=== PATIENT | female | born 1990 | race Caucasian/White ===

== ENCOUNTER 2018-07-22 19:37 | Emergency (ER) | payer SELFPAY ==
[2018-07-22 19:38] VITALS: BP 153/92; PULSE 130; RESP 20; TEMP 36.8; O2SAT 100; BMI 35.4
[2018-07-22 20:02] VITALS: BP 141/87; PULSE 96; RESP 16; O2SAT 100
--- NOTE | 2018-07-22 20:02 | EKG12_ITS ---
Test Reason : SVT Blood Pressure : / mmHG Vent. Rate : 117 BPM Atrial Rate : 117 BPM P-R Int : 136 ms QRS Dur : 076 ms QT Int : 310 ms P-R-T Axes : 054 041 018 degrees QTc Int : 432 ms Sinus tachycardia Otherwise normal ECG Confirmed by BRITANY MARSH ([id number]), script editor JOSE ANTONIO BEE ([id number]) on 07/26/2018 8:36:33 AM Referred By: JOHN Confirmed By:BRITANY MARSH
--- NOTE | 2018-07-22 20:07 | ED.RN ---
NO OLD EKGS IN MUSE
[2018-07-22 20:31] LABS: Absolute Lymphocyte Count 2.45 X10^3/ul (0.83-4.51); Basophil# 0.01 X10^3/uL; Basophil% 0.1 % (0-1); Hematocrit 44.6 % (37-47); Hemoglobin 14.7 g/dl (12.0-15.0); Lymphocyte # 2.45 X10^3/ul (4.0); Lymphocyte % 24.3 % (19-41); Mean Corpuscular Hgb 27.9 pg (27.0-32.0); Mean Corpuscular Volume 84.6 fL (81-99); Mean Platelet Vol. 9.6 fl (6.2-12.0); Monocyte# 0.49 X10^3/uL; Monocyte% 4.9 % (0-10); Neutrophil # 7.03 X10^3/uL (2.7-7.7); Neutrophil % 69.5 % (47-70); Platelet Count 287 K/mm3 (150-450); RBC Distribution Width CV 12.9 % (11.6-14.6); RBC Distribution Width SD 39.3 fl (35.1-43.9); Red Blood Count 5.27 M/mm3 (4.2-5.4); White Blood Count 10.1 K/mm3 (4.4-11.0)
[2018-07-22 20:34] LABS: POSITIVE COUNT NO; POSITIVE DIFFERENTIAL NO; POSITIVE MORPHOLOGY NO
[2018-07-22 20:52] LABS: Anion Gap 8 (5-15); BUN 10 mg/dL (7-18); BUN/Creat Ratio 13.4 RATIO (10-20); Calcium,Total 9.1 mg/dL (8.5-10.1); Chloride 108 mmol/L (98-107); Creatinine, Serum 0.75 mg/dL (0.55-1.02); EST Glomerular Filtration Rate 99 mL/min (>60); Est Glom Filt Rate - Afr Amer 120 mL/min (>60); Estimated Creatinine Clearance 102.28 ml/min; Glucose 124 mg/dL (74-106); Potassium 3.3 mmol/L (3.5-5.1); Sodium Level 141 mmol/L (136-145); Thyroid Stim Hormone (TSH) 2.39 uIU/mL (0.358-3.74)
[2018-07-22 21:23] VITALS: BP 135/88; PULSE 99; RESP 16; O2SAT 99
[2018-07-22 22:13] VITALS: BP 145/88; PULSE 111; RESP 16; O2SAT 97
--- NOTE | 2018-07-22 22:33 | ED.VISSUMM ---
- ER Visit Summary Date of Service: 07/22/18 Chief Complaint: Rapid heart rate History of Present Illness: The patient is a 27 F who presents with rapid heart rate. She is states her heart rate is gone as high as 130. This is been an intermittent problem for approximately 1 year. She is noted increased shortness of breath over the past several months. She also reports a 30 pound weight gain. She denies night sweats. She denies ocular, visual auditory symptoms. She denies any chest discomfort. She denies orthopnea or PND. She denies abdominal pain, nausea, vomiting diarrhea. She denies black or maroon stool. She denies urologic symptoms. She denies myalgias, arthralgias or back pain. She denies skin rash or lesions. She denies headache, weakness, anesthesia, paresthesia or motor weakness. She denies anxiety. She denies urticaria or angioedema. She does drink caffeinated beverages. She denies heat or cold intolerance. Please read written note for complete detail. Physical Examination: Vital signs noted and are marked for an elevated blood pressure 153/92 and heart rate 130. BMI is 35.4. Head is atraumatic normocephalic. Pupils are equal round reactive. Extraocular muscles are intact. TMs are pearly white with landmarks noted. Nares patent with no drainage. Posterior pharynx without erythema or exudate. Uvula is midline. There is no dysphonia or dysphasia. Trachea is midline. There is no stridor with auscultation of the neck. Heart is regular without murmur, gallop or rub. S1 and S2 are normal. Lungs are clear to auscultation with good movement of air bilaterally. Abdomen soft nontender. Patient is alert and oriented ?3. Motor is 5 over 5. Sensory is intact. DTRs are symmetric with no clonus or Babinski sign. Cranial 2 through 12 are intact. Cerebellar testing is normal. Test Results: CBC normal. Basic metabolic panel is unremarkable. Potassium 3.3 chloride 108 glucose 124. TSH normal. EKG sinus tachycardia rate of 117 with normal AK interval, QRS duration and QT interval. Dingess is normal. There is no evidence of WPW or Avilez Long Ganong syndrome. Emergency Department Course and Treatment: EKG was obtained to determine if there is any findings suggest preexcitation syndrome. Electrolytes TSH. Treatment Plan: Since this is been a problem for many months she was referred to Dr. Elizondo who is on-call for cardiology. Disposition: Discharge to home and decrease caffeine intake Impression: Sinus tachycardia documented on EKG This note was generated with [employer] dictation software. It may contain incorrect words, spelling, and punctuation that were not noted in review of the chart prior to signing ED Disposition - Plan for ED Patient: Disposition: Home or Assisted Living Chief Complaint: Palpitations Instructions: ED Tachycardia Pat PSVT Referrals: Yasmany Perez DO [Primary Care Provider] - Nahum Elizondo MD [STAFF PHYSICIAN] - 5-7 Days Additional Instructions: You should decrease your caffeine intake.
[2018-07-22 23:14] VITALS: BP 132/78; PULSE 102; RESP 16; O2SAT 96
== END 2018-07-22 23:14 | disposition home or self-care (01) ==
PROVIDERS: Emergency Provider Emergency Medicine; Family Provider Family Medicine; PCP Family Medicine
DX: R00.0 Tachycardia, unspecified (principal); E66.9 Obesity, unspecified; Z68.35 Body mass index [BMI] 35.0-35.9, adult; Z72.0 Tobacco use
CPT/HCPCS: 80048; 84443; 85025; 93005; 99284; A4216

== ENCOUNTER 2019-01-11 17:49 | Emergency (ER) | payer SELFPAY ==
[2019-01-11 17:51] VITALS: BP 136/76; PULSE 122; RESP 18; TEMP 36.4; O2SAT 98; BMI 34.5
== END 2019-01-11 19:15 | disposition left against medical advice (07) ==
LOC: ED 19:31
PROVIDERS: Emergency Provider Emergency Medicine; Family Provider Family Medicine; PCP Family Medicine
DX: R69 Illness, unspecified (principal); Z53.21 Procedure and treatment not carried out due to patient leaving prior to being seen by health care provider

== ENCOUNTER 2019-01-13 23:55 | Emergency (ER) | payer SELFPAY ==
[2019-01-13 23:57] VITALS: BP 152/79; PULSE 108; RESP 16; TEMP 36.8; O2SAT 99; BMI 34.3
--- OUTSIDE RECORDS SUMMARY | 2019-01-14 00:22 | XMS RPT_ITS | CCD ---
:1990 External Reference #:[id number] Author Organization [facility] Care Team Providers Name Role Phone Unavailable Unavailable Unavailable Results Result Name Value Range Unit Interpretation Flag Date Location ua on 2019-01-11 Color Nom (U) Nery Normal 01-11-2019 [facility] ([place]) ([id number]) Comment: Performed By: #### UA, UAMICAO #### [place] [address] #### PREGU #### [address] [address] Glucose mass conc Negative Negative mg/dL Normal 01-11-2019 [facility] () [facility] [place] ([id number]) Comment: Performed By: #### UA, UAMICAO #### [address] [address] #### PREGU #### [address] [address] Ketones Ql (U) 80 Negative mg/dL 01-11-2019 [facility] ([place] ([id number]) Comment: Performed By: #### UA, UAMICAO #### [place] [address] #### PREGU #### [address] [address] UA Appear Cloudy Clear 01-11-2019 [facility] [place] ([id number]) Comment: Performed By: #### UA, UAMICAO #### [place] [address] #### PREGU #### [address] [address] UA Blood Trace Negative 01-11-2019 [facility] [place] ([id number]) Comment: Performed By: #### UA, UAMICAO #### [place] [address] #### PREGU #### [address] [address] UA Leuk Est Negative Negative Normal 01-11-2019 [facility] [place] ([id number]) Comment: Performed By: #### UA, UAMICAO #### [place] [address] #### PREGU #### [address] [address] UA Nitrite Negative Negative Normal 01-11-2019 [facility] [place] ([id number]) Comment: Performed By: #### UA, UAMICAO #### [place] [address] #### PREGU #### [address] [address] UA pH 5.5 5.0 - 8.0 Normal 01-11-2019 [facility] [place] ([id number]) Comment: Performed By: #### UA, UAMICAO #### [place] [address] #### PREGU #### [address] [address] UA Protein 30 Negative mg/dL Normal 01-11-2019 [facility] [place] ([id number]) Comment: Performed By: #### UA, UAMICAO #### [place] [address] #### PREGU #### [address] [address] UA Spec Grav >=1.030 1.015-1.025 01-11-2019 [facility] ([place] ([id number]) Comment: Performed By: #### UA, UAMICAO #### [place] [address] #### PREGU #### [address] [address] UA Specimen Type Clean Catch Normal 01-11-2019 [facility] [place] ([id number]) Comment: Performed By: #### UA, UAMICAO #### [place] [address] #### PREGU #### [address] [address] UA Urobilinogen 0.2 0.2-1.0 E.U./dL Normal 01-11-2019 [facility] ([place] ([id number]) Comment: Performed By: #### UA, UAMICAO #### [place] [address] #### PREGU #### [address] [address] Urobilinogen Qn (U) Small Negative 01-11-2019 [facility] [place] ([id number]) Comment: Performed By: #### UA, UAMICAO #### [place] [address] #### PREGU #### [address] [address] pregu on 2019-01-11 HCG ( test) Ql (U) Negative Normal 01-11-2019 [facility] ([place] ([id number]) Comment: Performed By: #### UA, UAMICAO #### [place] [address] #### PREGU #### [address] [address] test (u) int HCG not detected. 01-11-2019 [facility] ([place]) ([id number]) Comment: Performed By: #### UA, UAMICAO #### [place] [address] #### PREGU #### [address] [address] .urinalysis microscopic (ao) on 2019-01-11 RBC #/vol (U) 0-5 None Seen 01-11-2019 [facility] ([place] ([id number]) Comment: Performed By: #### UA, UAMICAO #### [place] [address] #### PREGU #### [address] [address] UA Bacteria 1+ /hpf 01-11-2019 [facility] ([place] ([id number]) Comment: Performed By: #### UA, UAMICAO #### [place] [address] #### PREGU #### [address] [address] UA Squam Epithelial 5-10 None Seen 01-11-2019 [facility] [place] ([id number]) Comment: Performed By: #### UA, UAMICAO #### [place] [address] #### PREGU #### [address] [address] UA WBC None Seen None Seen Normal 01-11-2019 [facility] [place] ([id number]) Comment: Performed By: #### UA, UAMICAO #### [place] [address] #### PREGU #### [address] [address] [address] head or brain w/o contrast on 2018-12-19 CT HEAD OR BRAIN ORIGINAL Normal 12-19-2018 [facility] W/O CONTRAST CT HEAD OR BRAIN W/O CONTRAST [facility] [place] ([id number]) This exam was performed according to our departmental dose optimization program, and includes the following measures where applicable: automated exposure control, adjustment of the mAs and/or kVp accord ing to patient size and/or exam, and an iterative reconstruction algorithm. CLINICAL STATEMENT: Posterior head/neck pain COMPARISON: None FINDINGS: The ventricles are normal in size, shape, and position. Bloom and white matter differentiation is preserved. There is no acute intracranial hemorrhage, large territory infarct, mass effect, or midline shift. The visualized paranasal sinuses and mastoid air cells are clear. The calvarium is intact. IMPRESSION: No acute process. Interpreted By: Belen Henriquez MD Preliminary Report By: Belen Henriquez MD Electronically Signed By: Belen Henriquez MD Dictated Date: 12/19/2018 1:52:05 PM Prelim Date: 12/19/2018 1:52:05 PM Sign Date: 12/19/2018 1:53:19 PM Encounters Date Type Reason Provider Location 01-11-2019 - Emergency department Flaquita Yoo Facility:B 01-11-2019 patient visit LEONEL LOUISE Payers Payer Name Policy Number Location SELF PAY [employer] [facility] [place] ([id number]) [id number] [facility] [place] ([id number]) The following information is from the original human readable content ENCOUNTER GUARANTOR PAYER SUBSCRIBER SOURCE 2019 MARLENE Nina [facility] MARLENE M [facility] LITTLEDOB: Insurance:SELF PAY LITTLEDOB: [facility] [id number] INSCOPolicy Number: [id number] [facility] SERA [facility] SERA [place], [place] Date:[address] [place] [id number]: [phone] [email or web address]: Name:[phone] () ()Tel: [phone] () Summary Purpose DATE CREATED AUTHOR AUTHOR'S ORGANIZATION 01/12/2019 [facility] ([place] Family History No Family History Records Found Advance Directives No Advanced Directives Records Found Additional Source Comments FOR RECORDS PERTAINING TO PATIENTS WHO ARE OR HAVE BEEN ENROLLED IN A CHEMICAL DEPENDENCY/SUBSTANCE ABUSE PROGRAM, SOME INFORMATION MAY BE OMITTED. This clinical summary was aggregated from multiple sources. Caution should be exercised in using it in the provision of clinical care. This summary normalizes information from multiple sources, and as a consequence, information in this document may materially changethe coding, format and clinical context of patient data. In addition, data may be omittedin some cases. CLINICAL DECISIONS SHOULD BE BASED ON THE PRIMARY CLINICAL RECORDS. [facility] provides no warranty or guarantee of the accuracy or completeness of information in this document. UNRECOGNIZED CONTENT PROVIDED BELOW FOR UNRECOGNIZED SECTION INFORMATION SOURCE DATE CREATED AUTHOR AUTHOR'S ORGANIZATION 01/12/2019 [facility] ([place])
[2019-01-14 01:46] LABS: Absolute Lymphocyte Count 1.99 X10^3/ul (0.83-4.51); Basophil# 0.02 X10^3/uL; Basophil% 0.2 % (0-1); Eosinophil# 0.05 X10^3/uL; Eosinophils% 0.5 % (0-5); Hematocrit 42.8 % (37-47); Hemoglobin 14.5 g/dl (12.0-15.0); Lymphocyte # 1.99 X10^3/ul (4.0); Lymphocyte % 18.7 % (19-41); Mean Corp Hgb Conc 33.9 g/gl (32-36); Mean Corpuscular Hgb 27.6 pg (27.0-32.0); Mean Corpuscular Volume 81.4 fL (81-99); Mean Platelet Vol. 9.9 fl (6.2-12.0); Monocyte# 0.55 X10^3/uL; Monocyte% 5.2 % (0-10); Neutrophil % 75.3 % (47-70); Platelet Count 325 K/mm3 (150-450); RBC Distribution Width CV 12.5 % (11.6-14.6); Red Blood Count 5.26 M/mm3 (4.2-5.4); White Blood Count 10.6 K/mm3 (4.4-11.0)
[2019-01-14 01:47] LABS: POSITIVE COUNT NO; POSITIVE DIFFERENTIAL NO; POSITIVE MORPHOLOGY NO
[2019-01-14 02:10] LABS: Anion Gap 6 (5-15); BUN 12 mg/dL (7-18); BUN/Creat Ratio 18.9 RATIO (10-20); Calcium,Total 9.2 mg/dL (8.5-10.1); Chloride 105 mmol/L (98-107); Creatinine, Serum 0.64 mg/dL (0.55-1.02); EST Glomerular Filtration Rate 119 mL/min (>60); Est Glom Filt Rate - Afr Amer 144 mL/min (>60); Estimated Creatinine Clearance 123.61 ml/min; Glucose 109 mg/dL (74-106); Potassium 3.6 mmol/L (3.5-5.1); Sodium Level 138 mmol/L (136-145); Thyroid Stim Hormone (TSH) 1.13 uIU/mL (0.358-3.74)
--- NOTE | 2019-01-14 02:34 | ED.DCSUM_ITS ---
- ER Visit Summary Date of Service: 01/14/19 Chief Complaint: Shaky and twitchy History of Present Illness: The patient is a 28 F who complains about 2-3 weeks of muscle spasms and twitching shakiness. She does complain of depression. She states she has felt more irritable lately. She also complains of fatigue. She complains of nausea. She remains of pain in the back of her head and neck. Physical Examination: Heart rate 108 vitals otherwise unremarkable Moist mucous membranes Heart regular rate and rhythm Lungs are clear Abdomen soft Extremities nontender, normal muscle tone No focal or lateralizing neurological deficits Patient has a blunted affect Test Results: CBC BMP TSH all normal. Emergency Department Course and Treatment: Patient was requesting blood work and CAT scans. She states she is worried that something is wrong with her nervous system. I explained that many of her symptoms are attributable to depression. I did check blood work including CBC for anemia and TSH for hypothyroidism. La bs are unremarkable. Patient advised to follow-up with her primary care physician was discharged home. Treatment Plan: [] Disposition: Discharge Impression: Depression This note was generated with [employer] dictation software. It may contain incorrect words, spelling, and punctuation that were not noted in review of the chart prior to signing ED Disposition - Plan for ED Patient: Referrals: Yasmany Perez DO [Primary Care Provider] -
--- NOTE | 2019-01-14 02:34 | ED.DEP ---
ED Disposition - Plan for ED Patient: Instructions: ED Depression Referrals: Yasmany Perez DO [Primary Care Provider] -
[2019-01-14 02:41] VITALS: BP 136/75; PULSE 75; RESP 16; O2SAT 100
== END 2019-01-14 02:41 | disposition home or self-care (01) ==
PROVIDERS: Emergency Provider Emergency Medicine; Family Provider Family Medicine; PCP Family Medicine
DX: F32.9 Major depressive disorder, single episode, unspecified (principal); Z72.0 Tobacco use
CPT/HCPCS: 80048; 84443; 85025; 99283; A4216

== ENCOUNTER 2019-09-29 06:59 | Emergency (ER) | payer MEDICAID, SELFPAY ==
[2019-02-09 15:56] VITALS: BMI 34.3
[2019-09-29 07:00] VITALS: BP 133/71; PULSE 103; RESP 16; TEMP 36.8; O2SAT 97; BMI 34.9
--- NOTE | 2019-09-29 07:39 | ED.VIS.GI ---
History of Present Illness Chief Complaint: Complaint Detail of Chief Complaint: lower abdominal pain Informant: Patient - Abdominal Pain/Flank Pain Onset: Weeks - 2-3 Context: Gradual Onset Timing: Intermittent, Waxes and wanes Quality: - - pressure Location: - - suprapubic Current Severity: Mild Maximum Severity: Moderate Worsened by: - - TV ultrasound exam Relieved by: Nothing - Nausea/Vomiting/Emesis GI Symptom: Nausea, Vomiting - occasional Onset: Weeks - 2 - Diarrhea/Melena/Hematochezia GI Symptom: Negative for: Diarrhea, Melena, Hematochezia Associated Symptoms: Frequency. Negative for: Dysuria, Hematuria, Urgency Narrative: Patient states she is 12 weeks . She has had the symptoms for weeks. She saw her raking machine operator a couple times. She has had negative urinalysis and culture according to her, with the exception of microscopic hematuria, and an ultrasound showing a single live intrauterine , she is G1, P0. She had a vaginal discharge earlier than all of this and was told she had bacterial vaginosis but they did not want a treated at the time, however they did just start treating it and she has been on Flagyl for 5 days. She states the symptoms are no different with the exception of the vaginal discharge which is gone. In addition for the past week and a half or so, she has been having small hard bowel movements and feels she is backed up. No history of any abdominal surgeries. No fevers. No back pain. No vaginal bleeding. - Past Medical History (1) GERD (gastroesophageal reflux disease) Status: Chronic Past Medical History - Allergies and Home Meds Allergies/Adverse Reactions: Allergies No Known Allergies Allergy (Verified 09/29/19 07:02) Past Medical History: None Smoking Status: Current every day smoker Drugs: None Review of Systems General: Denies: Chills, Fever, Sweats Eyes: Denies: Visual changes - bilaterally, Diplopia ENT: Denies: Rhinorrhea, Sore throat Cardiovascular: Denies: Chest pain, Palpitations Respiratory: Denies: Dyspnea, Cough, Dyspnea on exertion Gastrointestinal: Reports: Abdominal pain - upper chronically w/ reflux, not now. suprapubic - see HPI., Nausea, Vomiting. Denies: Diarrhea, Melena, Hematochezia Genitourinary: Reports: Frequency. Denies: Dysuria, Hematuria Musculoskeletal: Denies: Neck pain, Back pain, Swelling, Extremity Pain Skin: Denies: Rash, Wounds Neurological: Denies: Headache, Weakness, Numbness Physical Exam Vital Signs/Narrative: Vital Signs Temp Pulse Resp BP Pulse Ox 09/29/19 07:00 98.3 F 103 H 16 133/71 H 97 Inital Vital Signs reviewed: Yes General: Well nourished, Well developed, Obese, No Acute Distress Head: Normocephalic, Atraumatic Eyes: Perrl, EOMI ENT: Moist mucous membranes, No rhinorrhea Neck: Supple, Nontender Cardiovascular: Regular rate, Regular rhythm, No murmurs. Negative for: Tachycardia Respiratory: No distress, CTA bilaterally, Chest nontender Abdomen: Soft, Nondistended, Normal bowel sounds, Tender - mild suprapubic only. Negative for: Guarding, Rebound tenderness Back: Nontender, Normal Inspection. Negative for: CVA tenderness Extremities: Nontender, No edema Skin: Normal color, No rash Neurological: Alert, Oriented x3, Cranial nerves II-XII grossly intact, Normal Strength, Normal Sensation Psychological: Normal affect, Normal Mood Diagnostic/Tx/Re-eval - Medical Decision Making heart tones 154. Offered testing the patient is urine but she states my CORE DRILL OPERATOR already did that, I do not need it again. We gave her a fleets enema which she agreed to, after which she had a large bowel movement and felt much better, her pain is much better. She should continue the Flagyl as prescribed until finished. She should follow-up with her CORE DRILL OPERATOR. She is comfortable with this plan in addition to adding MiraLAX to her daily routine. We did discuss antinausea medications and that they can cause constipation, she has not been using them yet but has them at the pharmacy. ED Disposition - Plan for ED Patient: Disposition: Home or Assisted Living Diagnosis: Suprapubic abdominal pain, First trimester , Constipation Instructions: ABDOMINAL PAIN, Early , CONSTIPATION (Adult) Referrals: Adalberto Mathis DO [Primary Care Provider] - CORE DRILL OPERATOR, your [Other] - 3-5 Days if not improving Additional Instructions: Take 1 capful of MiraLAX dissolved in any liquid daily and make sure you are drinking plenty of fluids, to prevent recurrence of constipation issues.
[2019-09-29] MEDS: Fleet Enema 1 ML RECTAL (08:30)
[2019-09-29 09:26] VITALS: RESP 18
== END 2019-09-29 09:26 | disposition home or self-care (01) ==
PROVIDERS: Emergency Provider Emergency Medicine; Family Provider Preventive Medicine Occupational Medicine; PCP Preventive Medicine Occupational Medicine
DX: O99.611 Diseases of the digestive system complicating pregnancy, first trimester (principal); K59.00 Constipation, unspecified; O99.211 Obesity complicating pregnancy, first trimester; E66.9 Obesity, unspecified; O99.331 Smoking (tobacco) complicating pregnancy, first trimester; F17.200 Nicotine dependence, unspecified, uncomplicated; Z3A.12 12 weeks gestation of pregnancy
CPT/HCPCS: 99282

== ENCOUNTER → 2020-12-06 | Outpatient (CLI) | payer MEDICAID, SELFPAY | END | disposition home or self-care (01) | PROVIDERS: PCP Preventive Medicine Occupational Medicine; Referring Provider Otolaryngology; Visit Provider Otolaryngology | DX: J02.9 Acute pharyngitis, unspecified (principal) | CPT/HCPCS: 87070 ==

== ENCOUNTER → 2021-04-02 07:38 | Outpatient (CLI) | payer MEDICAID, SELFPAY ==
--- NOTE | 2021-04-02 07:39 | CT_ITS ---
STUDY: CT SOFT TISSUE NECK WITH CONTRAST REASON FOR EXAM: Female, 30 years old. NECK MASS TONGUE PAIN. Swelling of the left salivary gland. RADIATION DOSAGE (If Supplied By Facility): CTDIvol = ( 18.82 ) mGy, DLP = ( 489.01 ) mGycm TECHNIQUE: The patient was scanned in a multi-detector CT scanner. High resolution transaxial imaging was performed following intravenous administration of IV 100mL Isovue-300. Sagittal and coronal images were reconstructed. Individualized dose optimization techniques were used for this CT. COMPARISON: None. FINDINGS: Mildly enlarged left parotid gland. This is a 4.2 mm x 4 mm cyst in the anterior superior aspect of the left parotid gland. No calcification is seen within the gland. Normal bilateral five roll refiner batch mixer spaces. Normal bilateral parapharyngeal spaces. Normal bilateral carotid spaces. Normal bilateral sublingual and submandibular glands and spaces. Normal visualized nasopharynx. Normal retropharyngeal space. Normal perivertebral space. Normal visualized bilateral faucial tonsils. The visualized tongue, tongue base and oropharynx are normal. The visualized cervical lymph nodes (levels I-) are within normal size limits, and maintain normal morphology. There is no demonstrated solid or cystic mass lesion. There is no abnormal contrast enhancement. Normal epiglottis, bilateral vallecula and hypopharynx. The pre-epiglottic and paraglottic adipose spaces are normal. Normal visualized bilateral piriform sinuses, aryepiglottic folds, vocal cords, and arytenoid-cricoid articulations. Normal subglottic trachea. Normal bilateral lobes of the thyroid gland. Normal visualized pulmonary apices. Normal visualized paranasal sinuses. Normal visualized cervical spine. CT/Soft Tissue Neck WITH Contrast IMPRESSION: Mild enlargement of the left parotid gland with a 4.2 mm x 4 mm cyst in the anterior superior aspect of the left parotid gland. Electronically Signed: Duane Lyles MD at 8:19 EDT , Service support ,
== END ==
PROVIDERS: PCP Student in an Organized Health Care Education/Training Program; Referring Provider Otolaryngology; Visit Provider Otolaryngology
DX: R22.1 Localized swelling, mass and lump, neck (principal); K14.6 Glossodynia
CPT/HCPCS: 70491; Q9967

== ENCOUNTER → 2023-01-15 | Outpatient (CLI) | payer MEDICAID, SELFPAY ==
[2023-01-18 15:07] LABS: SJOGREN'S Anti-SS-A test < 0.2 AI (0.0-0.9); SJOGREN'S Anti-SS-B test < 0.2 AI (0.0-0.9)
== END | disposition home or self-care (01) ==
LOC: LAB 08:28
PROVIDERS: PCP Student in an Organized Health Care Education/Training Program; Referring Provider Otolaryngology; Visit Provider Otolaryngology
DX: K11.23 Chronic sialoadenitis (principal)
CPT/HCPCS: 36415; 86235

== ENCOUNTER → 2023-06-11 | Outpatient (CLI) | payer MEDICAID, SELFPAY ==
--- NOTE | 2023-06-11 18:16 | US_ITS ---
Exam: Limited focused ultrasound of the left neck. HISTORY: Left submandibular gland swelling. COMPARISON: CT scan 04/02/2021 US/Head/Neck Soft Tissue IMPRESSION: Left submandibular gland measures 5.5 x 3.4 x 2.1 cm. Right-sided mandibular gland measures 5.3 x 3.3 x 1.2 cm. No gross focal mass. Nonspecific, nonpathologic left-sided lymph nodes. IMPRESSION: No definite mass. No definite difference in size between the submandibular glands. Electronically Signed: Kevin Brown MD at 18:57 EDT ,
== END | disposition home or self-care (01) ==
LOC: CT 18:19
PROVIDERS: PCP Student in an Organized Health Care Education/Training Program; Referring Provider Otolaryngology; Visit Provider Otolaryngology
DX: K11.23 Chronic sialoadenitis (principal)
CPT/HCPCS: 76536

== ENCOUNTER 2023-08-03 13:37 | Emergency (ER) | payer MEDICAID, SELFPAY ==
[2023-08-03 13:38] VITALS: BP 102/66; PULSE 78; RESP 18; TEMP 36.8; O2SAT 99; BMI 24.0
--- NOTE | 2023-08-03 14:02 | EX.ED.DYSGE1 ---
HPI <PALMIRA Steele - Last Filed: 08/03/23 15:56> History of Present Illness Chief Complaint: Palpitations Narrative Narrative: 32-year-old female was driving this afternoon when she started to breathe erratically and feel her heart pounding. It lasted about 5 minutes and she pulled over and called the paramedics. She had no chest pain. No nausea, vomiting, or diaphoresis. She has had palpitations intermittently for over 3 years. She is scheduled to pick up operator a Holter monitor at [place] tomorrow. She denies any recent change in her medications. Denies smoking, alcohol or drug use. She states her GERD has been worse than usual recently despite taking pantoprazole. [facility] <PALMIRA Steele - Last Filed: 08/03/23 15:56> [facility] Medical History (Updated 08/03/23 @ 14:43 by PALMIRA Steele) Chronic midline thoracic back pain Chronic neck pain Dysautonomia-like disorder Hemoglobin A1c less than 7.0% IBD (inflammatory bowel disease) Intertrigo Macromastia Obesity Pre-diabetes Shoulder pain Home Medications pantoprazole 40 mg tablet,delayed release 40 mg PO DAILY 08/03/23 [History Last Taken Unknown] Allergy/AdvReac Type Severity Reaction Status Date / Time latex Allergy Intermediate Rash Verified 08/03/23 13:41 Family History Other Colon cancer Diabetes Surgical History History of excision of lesion History of tonsillectomy Social History Smoking Status: Former smoker alcohol intake: never substance use type: does not use additional social history: Does Not Take Aspirin Does Take Ibuprofen As Needed ROS <PALMIRA Steele - Last Filed: 08/03/23 15:56> ROS ED ROS Narrative Constitutional: Negative for fever, chills, malaise. CVS: Positive for palpitations, chest pain. Negative for syncope. Respiratory: Negative for shortness of breath, cough, orthopnea. GI: Negative for abdominal pain, nausea, vomiting. EXAM <PALMIRA Steele - Last Filed: 08/03/23 15:56> Physical Exam Narrative Exam Narrative: CONST: Patient sitting in no acute distress. EYES: Normal inspection. NECK: Normal inspection. RESP: No respiratory distress, CTAB. CVS: Regular rate and rhythm, no murmur, no gallop. ABD: Soft and nontender, no guarding or rebound, nondistended. SKIN: Color normal, no rash, warm, dry, intact. EXTREMITIES: Normal appearance, no pedal edema. NEURO: Oriented x4. PSYCH: Normal affect. Const Vital Signs: 08/03/23 13:38 08/03/23 13:45 08/03/23 14:40 Temperature 98.3 F Temperature Source Oral Pulse Rate 78 75 Respiratory Rate 18 18 Respiratory Effort Normal Non-Labored Blood Pressure 102/66 98/65 Blood Pressure Mean 78 76 Pulse Ox 99 99 Oxygen Delivery Method Room Air <Dr. Alexis Huber MD - Last Filed: 08/03/23 14:34> Physical Exam Const Vital Signs: 08/03/23 13:38 08/03/23 13:45 08/03/23 14:40 Temperature 98.3 F Temperature Source Oral Pulse Rate 78 75 Respiratory Rate 18 18 Respiratory Effort Normal Non-Labored Blood Pressure 102/66 98/65 Blood Pressure Mean 78 76 Pulse Ox 99 99 Oxygen Delivery Method Room Air MDM <PALMIRA Steele - Last Filed: 08/03/23 15:56> [facility] MDM Narrative Medical decision making narrative: Patient has had intermittent palpitations for years and is scheduled for an outpatient Holter monitor. She had another episode today and presents for evaluation. She appears well and nontoxic. Vital signs are stable. My interpretation of bedside telemetry shows normal sinus rhythm at 82 bpm. She has normal heart and lung sounds. CBC, BMP, and troponin are all within normal limits. I considered a chest x-ray but she has not had chest pain and states she has had multiple chest x-rays in the past that were normal. Testing I recommended she pick up operator the Holter monitor that is waiting for her at [place] and follow-up with her primary care doctor. She was discharged in stable condition. Differential: Palpitations, arrhythmia such as PVCs, SVT, A-fib I have personally performed a face to face assessment of the patient and have reviewed the ROXANNE Note. I performed a substantive portion of the visit including all aspects of the following. My oneil findings include: History is 32-year-old female history of palpitations. Worse today. No cardiac history. Prior history of DVT or PE or risk factors. No chest pain or hemoptysis. Exam is [appearing 32-year-old female. Vital signs stable afebrile. Pulse ox 100% on room air no hypoxia. H EENT exam unremarkable. Neck nontender no lymphadenopathy. No thyromegaly. Lungs clear to auscultation bilaterally. Heart regular rhythm no murmur. Chest wall nontender. Abdomen soft nontender. Moving all 4 extremities. Nontender no edema. Equal symmetrical radial pulses. 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 Dorsi plantarflexion intact. Neurologically she is awake and alert with no focal motor deficits.] Medical Decision Making [82-year-old female with palpitations. Her exam is normal. Her vital signs are normal. She undergo cardiac work-up. She has had this before and has had negative work-ups before. Negative cardiac monitoring before.] Other additions or changes: [None] Lab Data Attestation: I reviewed the patient's lab results. Labs: Laboratory Results - last 24 hr 08/03/23 14:05 WBC 6.1 RBC 4.31 Hgb 12.2 Hct 37.2 MCV 86.3 MCH 28.3 MCHC 32.8 RDW Std Deviation 51.6 H RDW Coeff of Ojsep 16.3 H Plt Count 176 MPV 9.9 Immature Gran % (Auto) 0.200 Neut % (Auto) 67.2 Lymph % (Auto) 25.9 [place] % (Auto) 5.1 Eos % (Auto) 1.3 Baso % (Auto) 0.3 Absolute Neuts (auto) 4.1 Absolute Lymphs (auto) 1.57 Nucleated RBC % 0 Sodium 141 Potassium 3.7 Chloride 108 H Carbon Dioxide 30.0 Anion Gap 3 L BUN 22 H Creatinine 0.63 Estim Creat Clear Calc 121.12 Est GFR (MDRD) Af Amer 142 Est GFR (MDRD) Non-Af 117 BUN/Creatinine Ratio 35.0 H Glucose 100 Calcium 8.5 Troponin I High Sens 4 EKG Initial EKG: Attestation: I personally reviewed and interpreted this EKG as follows: Interpretation: Sinus Rhythm and Sinus Arrythmia Comments: NSR with sinus arrhythmia at 73 bpm Normal intervals, no ischemic changes <Dr. Alexis Huber MD - Last Filed: 08/03/23 14:34> [facility] Narrative Medical decision making narrative: I have personally performed a face to face assessment of the patient and have reviewed the ROXANNE Note. I performed a substantive portion of the visit including all aspects of the following. My oneil findings include: History is 32-year-old female history of palpitations. Worse today. No cardiac history. Prior history of DVT or PE or risk factors. No chest pain or hemoptysis. Exam is [appearing 32-year-old female. Vital signs stable afebrile. Pulse ox 100% on room air no hypoxia. H EENT exam unremarkable. Neck nontender no lymphadenopathy. No thyromegaly. Lungs clear to auscultation bilaterally. Heart regular rhythm no murmur. Chest wall nontender. Abdomen soft nontender. Moving all 4 extremities. Nontender no edema. Equal symmetrical radial pulses. 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 Dorsi plantarflexion intact. Neurologically she is awake and alert with no focal motor deficits.] Medical Decision Making [82-year-old female with palpitations. Her exam is normal. Her vital signs are normal. She undergo cardiac work-up. She has had this before and has had negative work-ups before. Negative cardiac monitoring before.] Other additions or changes: [None] History & Record Review Discussion w/independent historian: Patient Additional record(s) reviewed:: Prior inpatient record, Prior outpatient record, Prior ED visit and Prior labs Lab Data Lab results narrative: CBC normal. White count of 6. H&H 12 and 37. Platelets 176. EKG was a sinus rhythm. No acute signs of KS, ischemia or any type of dysrhythmia. Labs: Laboratory Results - last 24 hr 08/03/23 14:05 WBC 6.1 RBC 4.31 Hgb 12.2 Hct 37.2 MCV 86.3 MCH 28.3 MCHC 32.8 RDW Std Deviation 51.6 H RDW Coeff of Josep 16.3 H Plt Count 176 MPV 9.9 Immature Gran % (Auto) 0.200 Neut % (Auto) 67.2 Lymph % (Auto) 25.9 [place] % (Auto) 5.1 Eos % (Auto) 1.3 Baso % (Auto) 0.3 Absolute Neuts (auto) 4.1 Absolute Lymphs (auto) 1.57 Nucleated RBC % 0 Sodium 141 Potassium 3.7 Chloride 108 H Carbon Dioxide 30.0 Anion Gap 3 L BUN 22 H Creatinine 0.63 Estim Creat Clear Calc 121.12 Est GFR (MDRD) Af Amer 142 Est GFR (MDRD) Non-Af 117 BUN/Creatinine Ratio 35.0 H Glucose 100 Calcium 8.5 Troponin I High Sens 4 Radiography Diagnostic Testing: Patient did not want a chest x-ray. Discharge Plan Triage Chief Complaint: Palpitations ED Midlevel Provider: Damari Allred ED Provider: Alexis Huber Dx/Rx/DC Orders Clinical Impression: Heart palpitations Instructions: ED Palpitations Prescriptions: No Action pantoprazole 40 mg tablet,delayed release (DR/EC) 40 mg PO DAILY Patient Comments: take 1 tablet by mouth once daily Primary Care Provider: Zeferino Pond Referrals: Zeferino Pond DO [Primary Care Provider] - Activity Restrictions/Additional Instructions: Your test today look normal. Your heart is in a normal rhythm. Please follow-up with your scheduled outpatient heart monitor. Disposition Disposition: Home, Self Care Discharge Date/Time: 08/03/23 14:53
--- NOTE | 2023-08-03 14:04 | EKG12_ITS ---
Test Reason : Blood Pressure : / mmHG Vent. Rate : 073 BPM Atrial Rate : 073 BPM P-R Int : 150 ms QRS Dur : 078 ms QT Int : 392 ms P-R-T Axes : 061 070 048 degrees QTc Int : 431 ms Normal sinus rhythm with sinus arrhythmia Normal ECG Confirmed by VIRI NATHAN, CAROL ANN ([id number]), department editor JETHRO LOZA ([id number]) on 08/09/2023 10:18:11 AM Referred By: Confirmed By:CHRISTINA MEREDITH MD
[2023-08-03 14:16] LABS: Absolute Lymphocyte Count 1.57 X10^3/uL (0.83-4.51); Absolute Neutrophil Count 4.1 X10^3/uL (2.0-7.7); Basophil# 0.02 X10^3/uL; Basophil% 0.3 % (0-1); Eosinophil# 0.08 X10^3/uL; Eosinophils% 1.3 % (0-5); Hematocrit 37.2 % (37-47); Hemoglobin 12.2 g/dL (12.0-15.0); Lymphocyte # 1.57 X10^3/ul (0.83-4.51); Lymphocyte % 25.9 % (19-41); Mean Corp Hgb Conc 32.8 g/dL (32-36); Mean Corpuscular Hgb 28.3 pg (27.0-32.0); Mean Corpuscular Volume 86.3 fL (81-99); Mean Platelet Vol. 9.9 fl (6.2-12.0); Monocyte# 0.31 X10^3/uL; Monocyte% 5.1 % (0-10); NRBC Flagged by Analyzer 0 % (0-5); Neutrophil # 4.07 X10^3/uL (2.7-7.7); Neutrophil % 67.2 % (47-70); Platelet Count 176 K/mm3 (150-450); RBC Distribution Width CV 16.3 % (11.6-14.6); RBC Distribution Width SD 51.6 fl (35.1-43.9); Red Blood Count 4.31 M/mm3 (4.2-5.4); White Blood Count 6.1 K/mm3 (4.4-11.0)
[2023-08-03 14:34] LABS: Anion Gap 3 (5-15); BUN 22 mg/dL (7-18); Calcium,Total 8.5 mg/dL (8.5-10.1); Chloride 108 mmol/L (98-107); Creatinine, Serum 0.63 mg/dL (0.55-1.02); EST Glomerular Filtration Rate 117 mL/min (>60); Est Glom Filt Rate - Afr Amer 142 mL/min (>60); Estimated Creatinine Clearance 121.12 ml/min; Glucose 100 mg/dL (74-106); Potassium 3.7 mmol/L (3.5-5.1); Sodium Level 141 mmol/L (136-145); Troponin-I HS 4 pg/mL (3.0-54.0)
[2023-08-03 14:40] VITALS: BP 98/65; PULSE 75; RESP 18; O2SAT 99
[2023-08-03] MEDS: Mag Hydrox/Al Hydrox/Simeth 30 ML UDC PO (14:42)
== END 2023-08-03 14:53 | disposition home or self-care (01) ==
PROVIDERS: Physician Assistant; Emergency Provider Emergency Medicine; PCP Student in an Organized Health Care Education/Training Program; Visit Provider Emergency Medicine
DX: R00.2 Palpitations (principal); K21.9 Gastro-esophageal reflux disease without esophagitis; Z79.899 Other long term (current) drug therapy; Z87.891 Personal history of nicotine dependence
CPT/HCPCS: 80048; 84484; 85025; 93005; 99285; A4216

== ENCOUNTER 2025-01-20 17:40 | Emergency (ER) | payer MEDICAID, SELFPAY ==
[2025-01-20 17:41] VITALS: BP 109/73; PULSE 99; RESP 18; TEMP 36.3; O2SAT 100; BMI 26.2
--- NOTE | 2025-01-20 17:54 | US_ITS ---
PROCEDURE: TRANSVAGINAL W/PREG US 01/20/2025 REASON FOR EXAM: KNOWN ECTOPIC INCREASED PAIN RIGHT SIDE TECHNIQUE: Transvaginal FINDINGS: Comments: Uterine Abnormalities: Maternal uterus is unremarkable. Ovaries / Adnexa: Both maternal ovaries are visualized and unremarkable. US/Transvaginal w/Preg US IMPRESSION: Normal transvaginal pelvic ultrasound without evidence of intrauterine gestatio nal sac. Reading Location: [id number]
--- NOTE | 2025-01-20 18:07 | EDS_ITS ---
HPI HPI - Female History of Present Illness Chief Complaint: Vag Bleeding Narrative Narrative: Patient is G4, P1 who presents to the [facility] part with a chief complaint of right lower quadrant abdominal pain. Patient states that she was recently diagnosed with ectopic as she had been having some vaginal spotting and noted that she had a elevated hCG quant. They did a transvaginal ultrasound noted that she had a right sided ectopic . States that she was given methotrexate about 2 days ago and noted that she had worsening bleeding earlier in the day. She states that she ultimately went home however she states that her abdomen was distended and she was having increasing pain therefore she called the on-call [facility] FORGING ENGINEER team and advised her to come here for further evaluation management. [facility] Medical History Anxiety Obesity Dysautonomia-like disorder Intertrigo Shoulder pain Chronic midline thoracic back pain Chronic neck pain Macromastia Hemoglobin A1c less than 7.0% IBD (inflammatory bowel disease) Pre-diabetes Home Medications ?Medication ?Instructions ?Recorded ?Last Taken ?Type cetirizine 10 mg tablet 10 mg PO DAILY 01/20/25 Unkn own History cholecalciferol (vitamin D3) 125 125 mcg PO DAILY 12/27 03/21 Unknown History mcg (5,000 unit) capsule duloxetine 20 mg capsule,delayed 20 mg PO BID 01/20/25 Unknown History release ferrous sulfate 325 mg (65 mg 325 mg PO BID 01/20/25 U nknown History iron) tablet (FeroSul) fluticasone propionate 50 1 spray intranasal DAILY Unknown History mcg/actuation nasal spray,suspension progesterone micronized 200 mg 200 mg vaginal QHS 12/27 03/21 Unknown History capsule sertraline 50 mg tablet 50 mg PO Q24H 01/20/25 Unkno wn History Allergy/AdvReac Type Severity Reaction Status Date / Time latex Allergy Intermediate Rash Verified 01/20/25 17:41 Family History Other Colon cancer Diabetes Surgical History History of excision of lesion History of tonsillectomy Social History Smoking Status: Former smoker alcohol intake: never substance use type: does not use additional social history: Does Not Take Aspirin Does Take Ibuprofen As Needed ROS ROS ED ROS Narrative Constitutional: Denies fever, chills, headaches, lightness, dizziness Abdomen: Complains of right lower quadrant pain as noted above : Complains of vaginal bleeding noted above with known ectopic Neurological: Denies numbness, weakness, tingling Musculoskeletal: Denies back pain Skin: Denies rashes or lesions EXAM Physical Exam Narrative Exam Narrative: General: Patient lying bed rest comfortably did not appear to be in acute distress Head: Atraumatic, normocephalic Eyes: PERRL bilateral, EOMI bilateral, no conjunctival injection noted Neck: Soft, supple, trach Cardiovascular: Regular rate and rhythm Abdomen: Soft, nondistended, tender to palpation the right lower quadrant no rebound or guarding on exam Extremities: +5/5 strength noted in the bilateral upper and lower extremities Neurological: Patient functioning is that she was at [facility] year is 2024 Skin: Warm, dry, intact no rashes or lesions noted Const Vital Signs: 01/20/25 17:41 01/20/25 19:45 Temperature 97.4 F L Temperature Source Temporal Pulse Rate 99 87 Respiratory Rate 18 19 H Blood Pressure 109/73 110/65 Blood Pressure Mean 85 80 Pulse Ox 100 98 Oxygen Delivery Method Room Air Room Air MDM MDM MDM Narrative Medical decision making narrative: Patient is a 34-year-old female who presents to the emergency department with a chief complaint of right lower quadrant abdominal pain vaginal bleeding in the setting of ectopic . On the differential diagnose includes Melamin to ruptured ectopic, bleeding secondary to methotrexate use, appendicitis. Patient's hemoglobin was noted to be 12, hematocrit 36.5. Patient's hCG quant was noted to be 64 which was down from her previous blood draw that she had recently. Patient's urinalysis showed 250 blood 25 leukocyte esterase negative nitrites, greater than 100 red blood cells 5-10 white cells with 1+ bacteria. Patient's test was negative. Patient's ultrasound was reviewed and showed normal transvaginal pelvic ultrasound without evidence of intrauterine gestational sac. On reevaluation the patient she states that she is still having pain in the right lower quadrant and I advised her that we should add on a CT scan to ensure that she does not have appendicitis given that she still has her appendix however the patient states that she does not want further workup and wants to go home. I advised her that a need to discuss with OB and that if she does have appendicitis symptoms ruptures it could lead to further issues with her ihsan huang or even lead to . She states that if it gets worse she will come back. I discussed with on-call for [facility] OB Mal Jose who states that she will touch base with the physician on-call and call me back. I discussed again with franchesca coleman after her further discussion with the on-call physician and they state that from an ectopic standpoint they have no other concerns and that she should follow-up with them here first thing next week call the office on Wednesday. I went back in and rediscussed with the patient the results and the plan and advised that I feel that we should add a CT abdomen pelvis with IV contrast on to assure that she does not have appendicitis however once again she states that she does not want this and is refusing wants to go home she states that she will come back if her symptoms worsen. She was advised to follow-up with FORGING ENGINEER in the outpatient setting as well as her primary care physician. Her significant other at bedside is agreeable this plan as well all question concerns answered she was discharged home in stable condition. Lab Data Labs: Laboratory Results - last 24 hr 01/20/25 18:04 Hgb 12.0 Hct 36.5 L HCG, Quant 64 H Urine Color Red Urine Clarity Sl. Cloudy Urine pH 7.0 Ur Specific [place] 1.010 Urine Protein 30 H Urine Glucose (UA) Normal Urine Ketones Negative Urine Occult Blood 250 H Urine Nitrite Negative Urine Bilirubin Negative Urine Urobilinogen Normal Ur Leukocyte Esterase 25 H Urine RBC > 100 SEEN Urine WBC 5-10 SEEN Ur Squamous Epith Cells 0-5 SEEN Urine Bacteria 1+ Urine Mucus 0 SEEN Urine Test Negative Radiography Diagnostic Testing: Clinical Impression(s) from Imaging Studies Obstetrics Ultrasound 01/20/25 17:54 IMPRESSION: Normal transvaginal pelvic ultrasound without evidence of intrauterine gestational sac. Reading Location: [facility] Discharge Plan Triage Chief Complaint: Vag Bleeding ED Provider: Danial Ramos Dx/Rx/DC Orders Clinical Impression: Abdominal pain, Vaginal bleeding, History of ectopic Prescriptions: No Action cetirizine 10 mg tablet 10 mg PO DAILY ferrous sulfate [FeroSul] 325 mg (65 mg iron) tablet 325 mg PO BID progesterone micronized 200 mg capsule 200 mg vaginal QHS fluticasone propionate 50 mcg/actuation spray,suspension 1 spray INTRANASAL DAILY sertraline 50 mg tablet 50 mg PO Q24H cholecalciferol (vitamin D3) 125 mcg (5,000 unit) capsule 125 mcg PO DAILY duloxetine 20 mg capsule,delayed release(DR/EC) 20 mg PO BID Primary Care Provider: George Isidro Referrals: Zeferino Pond DO [Non-Staff] - Activity Restrictions/Additional Instructions: On Wednesday you need to call your FORGING ENGINEER for a follow-up appointment. Return with worsening symptoms or concerns such as fevers persistent nausea vomiting not tolerating oral intake worsening abdominal pain or any other concerns. Print Language: Irish Disposition Disposition: Home, Self Care
[2025-01-20 18:10] LABS: Mucous, Urine 0 SEEN /hpf (<or=2+)
[2025-01-20 18:13] LABS: Hematocrit 36.5 % (37-47)
[2025-01-20 18:42] LABS: hCG Titer Quant., Serum 64 mIU/mL (<9 non-preg)
[2025-01-20 18:50] LABS: Color, Urine Red (Yellow); Glucose, Dipstick Normal (Normal); Ketone-Dipstick Negative (Negative); Leukocyte Esterase-Dipstick 25 /ul (Negative); Nitrite-Dipstick Negative (Negative); Occult Blood-Urine 250 /ul (Negative); Protein-Dipstick 30 mg/dl (Negative); Urine Bilirubin Dipstick Negative (Negative); Urine Clarity Sl. Cloudy (Clear); Urine Urobilinogen Normal (Normal)
[2025-01-20 19:00] LABS: Bacteria 1+ /hpf (None Seen); Red Blood Cells-Urine > 100 SEEN /hpf (0-5); Squamous Epithelial Cells - UA 0-5 SEEN /hpf (5-10); White Blood Cells 5-10 SEEN /hpf (0-5)
[2025-01-20 19:13] LABS: Internal QC Validated? YES +Cl - CLEAR BKGD; Pregnancy, Urine Negative Negative
[2025-01-20 19:45] VITALS: BP 110/65; PULSE 87; RESP 19; O2SAT 98
--- NOTE | 2025-01-20 19:45 | CM.ED ---
Social Work: Date of referral: 01/20/2025 Reason for referral: Support Referred by: Social Work Identification Patient provided consent to social work visit. Patient had an adult male support at bedside. Patient stated she was doing ok and denied the need for any additional supports/resources at this time. Leanna Araujo, HOME THERAPY TEACHER, RADIATION CONTROL SPECIALIST
[2025-01-20 20:34] VITALS: BP 97/58; PULSE 82; RESP 18; TEMP 37.1; O2SAT 97
== END 2025-01-20 20:35 | disposition home or self-care (01) ==
PROVIDERS: Emergency Provider Emergency Medicine; PCP Student in an Organized Health Care Education/Training Program; Visit Provider Emergency Medicine
DX: N93.9 Abnormal uterine and vaginal bleeding, unspecified (principal); Z79.899 Other long term (current) drug therapy; Z87.891 Personal history of nicotine dependence
CPT/HCPCS: 76817; 81001; 81025; 84702; 85014; 85018; 99282; A4216

== ENCOUNTER → 2025-06-14 | Outpatient (CLI) | payer MEDICAID, SELFPAY ==
[2025-06-18 20:08] LABS: Chlamydia By Nucleic Acid AMP Negative (Negative); Gonococcus By Nucleic Acid AMP Negative (Negative)
[2025-06-21 12:09] LABS: HPV APTIMA, High Risk Negative (Negative)
== END | disposition home or self-care (01) ==
LOC: LABSPEC 16:06
PROVIDERS: PCP Student in an Organized Health Care Education/Training Program; Referring Provider Obstetrics & Gynecology; Visit Provider Obstetrics & Gynecology
DX: O09.90 Supervision of high risk pregnancy, unspecified, unspecified trimester (principal); O99.891 Other specified diseases and conditions complicating pregnancy; N89.8 Other specified noninflammatory disorders of vagina; Z12.4 Encounter for screening for malignant neoplasm of cervix; Z3A.00 Weeks of gestation of pregnancy not specified
CPT/HCPCS: 87070; 87086; 87088; 87205; 87491; 87591; 87624; 88175; G0145

== ENCOUNTER → 2025-06-18 | Outpatient (CLI) | payer MEDICAID, SELFPAY ==
[2025-06-18 08:54] LABS: Hematocrit 37.8 % (37-47); Hemoglobin 13.0 g/dL (12.0-15.0); Immature Granulocytes Count 0.030 X10^3/uL (0.0-0.0); Mean Corp Hgb Conc 34.4 g/dL (32-36); Mean Corpuscular Volume 81.1 fL (81-99); Mean Platelet Vol. 9.4 fl (6.2-12.0); NRBC Flagged by Analyzer 0 % (0-5); Platelet Count 218 K/mm3 (150-450); RBC Distribution Width CV 13.6 % (11.6-14.6); RBC Distribution Width SD 39.8 fl (35.1-43.9); Red Blood Count 4.66 M/mm3 (4.2-5.4); White Blood Count 7.5 K/mm3 (4.4-11.0)
[2025-06-18 09:54] LABS: HIV Nonreactive (Nonreactive); Hepatitis B Surface Antigen Nonreactive (Nonreactive); Hepatitis C Antibody Nonreactive (Nonreactive); Syphilis Antibodies Nonreactive (Nonreactive)
== END | disposition home or self-care (01) ==
LOC: LAB 08:13
PROVIDERS: PCP Student in an Organized Health Care Education/Training Program; Referring Provider Obstetrics & Gynecology; Visit Provider Obstetrics & Gynecology
DX: O09.90 Supervision of high risk pregnancy, unspecified, unspecified trimester (principal); Z3A.00 Weeks of gestation of pregnancy not specified
CPT/HCPCS: 36415; 83036; 85025; 86703; 86762; 86780; 86803; 86850; 86900; 86901; 87340

== ENCOUNTER → 2025-08-08 | Outpatient (CLI) | payer MEDICAID, SELFPAY ==
[2025-08-08 12:05] LABS: Hematocrit 35.9 % (37-47); Hemoglobin 12.0 g/dL (12.0-15.0); Immature Granulocytes Count 0.040 X10^3/uL (0.0-0.0); Mean Corp Hgb Conc 33.4 g/dL (32-36); Mean Corpuscular Volume 86.5 fL (81-99); Mean Platelet Vol. 10.0 fl (6.2-12.0); NRBC Flagged by Analyzer 0 % (0-5); Platelet Count 234 K/mm3 (150-450); RBC Distribution Width CV 13.2 % (11.6-14.6); RBC Distribution Width SD 41.1 fl (35.1-43.9); Red Blood Count 4.15 M/mm3 (4.2-5.4); White Blood Count 7.8 K/mm3 (4.4-11.0)
== END | disposition home or self-care (01) ==
PROVIDERS: PCP Student in an Organized Health Care Education/Training Program; Visit Provider Obstetrics & Gynecology
DX: R23.3 Spontaneous ecchymoses (principal)
CPT/HCPCS: 36415; 85025

== ENCOUNTER → 2025-09-17 | Outpatient (CLI) | payer MEDICAID, SELFPAY ==
--- NOTE | 2025-09-17 07:51 | US_ITS ---
PROCEDURE: BREAST LIMITED UNILATERAL 09/17/2025 REASON FOR EXAM: F, Age 34 y/o , DIMPLING. PATIENT . ULTRASOUND ONLY. History of breast reduction surgery. COMPARISON: None. TECHNIQUE: Procedure Code: USBRSTLIMIT Modality: US Procedure: BREAST LIMITED UNILATERAL FINDINGS: No ultrasound abnormality is seen in the left breast to correlate to the area of dimpling and pain. The area of dimpling and pain appears to represent normal breast tissue. No suspicious solid or cystic masses are seen. The skin is not abnormally thickened. There is no architectural distortion at this location. If patient's symptoms continue or worsen a breast MRI should be considered. Or a mammogram after the patient delivers. US/Breast Limited Unilateral IMPRESSION: No ultrasound abnormality is seen in the left breast to correlate to the area o f dimpling and pain. The area of dimpling and pain appears to represent normal breast tissue. No suspicious solid or cystic masses are seen. The skin is not abnormally thickened. There is no architectural distortion at this location. If patient's symptoms c ontinue or worsen a breast MRI should be considered. Or a mammogram after the patient delivers. BI-RADS 1: NEGATIVE RECOMMENDATION: OTHER If patient's symptoms continue or worsen a breast MRI [facility] uld be considered. Or a mammogram after the patient delivers. Reading Location: [id number]
== END | disposition home or self-care (01) ==
LOC: OPUS 07:50
PROVIDERS: PCP Student in an Organized Health Care Education/Training Program; Referring Provider Obstetrics & Gynecology; Visit Provider Obstetrics & Gynecology
DX: R23.4 Changes in skin texture (principal); Z87.2 Personal history of diseases of the skin and subcutaneous tissue
CPT/HCPCS: 76642